=== PATIENT | male | born 2000 | race Caucasian/White ===

== ENCOUNTER 2018-01-31 17:14 | Emergency (ER) | payer OTHER ==
[~2018-01-31] VITALS: Ht 185.4 cm; Wt 77.3 kg
[2018-01-31 17:16] VITALS: TEMP 98.6
[2018-01-31 19:14] VITALS: BP 117/68; PULSE 65
== END 2018-01-31 19:14 | disposition home or self-care (01) ==
LOC: COL.ER 17:14
DX: S09.90XA Unspecified injury of head, initial encounter (principal); W01.198A Fall on same level from slipping, tripping and stumbling with subsequent striking against other object, initial encounter; W10.9XXA Fall (on) (from) unspecified stairs and steps, initial encounter; Y92.009 Unspecified place in unspecified non-institutional (private) residence as the place of occurrence of the external cause
CPT/HCPCS: J1885